=== PATIENT | female | born 1995 ===

== ENCOUNTER 2018-07-25 20:37 | Emergency (ER) | payer BC ==
[2018-07-25 21:00] VITALS: BMI 27.4
[2018-07-25 21:04] VITALS: RESP 18; O2SAT 100
--- NOTE | 2018-07-25 21:57 | ED PDOC ---
HPI: Head Injury Time Seen by Provider: 07/25/18 21:38 Chief Complaint (Nursing): Trauma Chief Complaint (Provider): Head injury History Per: Patient History/Exam Limitations: no limitations Injury Occurred (Timing): Days Ago: (2x) Patient States: Fell Striking Head Loss Of Consciousness: No Additional Complaint(s): 22 year old female with no pertinent past medical history presents to the ED for evaluation of a head injury that occurred 2x nights ago. Patient states that 2x nights ago, she was walking down a flight of stairs when she missed a step, resulting in her falling down 5x steps. Patient states that she struck her head against the floor, sustaining an abrasion to her nasal bridge. Patient denies having a loss of consciousness and states that she felt okay initially after the fall, however, yesterday she began to develop a headache and jaw pain. Patient reports applying betadine to her nasal abrasion. Patient states that today she began to have difficulty concentrating, prompting ED visit. As per patient's boyfriend, she has been acting normal. Patient reports taking Aleve with no relief, last dose was 6x hours prior to arrival. Otherwise: (-) fever (-) neck pain/stiffness (-) visual changes (-) nausea, (-) vomiting (-) extremity pain (- ) chest pain (-) abdominal pain. Tetanus is up to date. LMP: Patient is unsure, about 1x year ago, secondary to control use. PMD: In [place], [place] Past Medical History Reviewed: Historical Data, Nursing Documentation, Vital Signs Vital Signs: Last Vital Signs Temp 98.5 F 07/25/18 21:01 Pulse 64 07/25/18 21:01 Resp 18 07/25/18 21:01 BP 146/82 07/25/18 21:01 Pulse Ox 100 07/25/18 21:01 CINDI Report Viewed: Yes - Medical History PMH: No Chronic Diseases - Surgical History Other surgeries: gastric sleeve - Family History Family History: States: Unknown Family Hx - Home Medications Home Medications: Ambulatory Orders Medication Instructions Recorded Acetaminophen [Acetaminophen 8 650 mg PO Q8 PRN #21 tablet.er 07/25/18 Hour] - Allergies Allergies/Adverse Reactions: Allergies Allergy/AdvReac Type Severity Reaction Status Date / Time No Known Allergies Allergy Verified 07/25/18 21:00 Review of Systems ROS Statement: Except As Marked, All Systems Reviewed And Found Negative ENT: Positive for: Other (jaw pain) Gastrointestinal: Negative for: Nausea, Vomiting Neurological: Positive for: Headache, Other (difficulty concentrating) Physical Exam - Reviewed Nursing Documentation Reviewed: Yes Vital Signs Reviewed: Yes - Physical Exam Comments: GENERAL APPEARANCE: Patient is awake, alert, oriented x 3, in no acute distress. Resting comfortably. SKIN: Warm, dry; (-) cyanosis; (-) rash. HEAD: Small hematoma to forehead just inferior to hairline (+)tenderness (-) palpable deformity (-) other scalp swelling or tenderness EYES: (-) conjunctival injection (-) hyphema (-) periorbital edema, erythema, ecchymosis, or tenderness ENMT: Superficial abrasion to nasal bridge with mild tenderness, (-) edema, (-) palpable deformity. Tenderness to the angle of left mandible with full ROM of mandible (-) edema (-) erythema (-) skin break. (-) sinus tenderness; mucous membranes are moist. Pharynx: clear, uvula midline. NECK: Supple, FROM (-) tenderness, (-) stiffness, (-) meningismus, (-) lymphadenopathy. CHEST AND RESPIRATORY: (-) rales, (-) rhonchi, (-) wheezes; breath sounds equal bilaterally. Respirations even and nonlabored. HEART AND CARDIOVASCULAR: (-) irregularity ABDOMEN AND GI: Soft; (-) tenderness. EXTREMITIES: (-) deformity. NEURO AND PSYCH: Mental status as above. clerk typist: Pupils equal and reactive; EOMI and painless; (-) facial asymmetry; tongue and uvula midline. Strength and sensation symmetric. Gait: steady. Speech: clear. Cerebellar tests intact. - Laboratory Results Urine POC: Negative - ECG O2 Sat by Pulse Oximetry: 100 (RA) Pulse Ox Interpretation: Normal Medical Decision Making Medical Decision Makin:40 Clinical impression: 22 year old female with a closed head injury and nasal contusion status post fall. Initial plan: * CT head w/o contrast * CT maxillofacial w/o contrast * upreg * tylenol 325 mg tab [address] reviewed, [facility] reports follow EXAM: CT Head without Intravenous Contrast. CLINICAL HISTORY: Head injury, from 07-23-2018 persistent headache TECHNIQUE: Axial computed tomography images of the head/brain without intravenous contrast. 780.23 mGy-cm COMPARISON: None provided. FINDINGS: BRAIN No acute intraparenchymal hemorrhage. No mass lesion. No CT evidence for acute territorial infarct. No midline shift or extra-axial collections. VENTRICLES: No hydrocephalus. ORBITS: The orbits are unremarkable. SINUSES AND MASTOIDS: The paranasal sinuses and mastoid air cells are clear. BONES: No fracture. SOFT TISSUES: Unremarkable. IMPRESSION: No acute intracranial abnormality. Electronically signed on Jul 25, 2018 10:45:58 PM EDT by: Anderson Guy M.D., ANNA MARIE Certified By [employer] Fellowship Trained MRI and CT Specialist EXAM: CT Maxillofacial without Intravenous Contrast. CLINICAL HISTORY: Head injury s/p fall nasal /jaw pain TECHNIQUE: Axial computed tomography images of the face without intravenous contrast. Sagittal and coronal reformatted images were generated. 735.66 mGy-cm CONTRAST: Without COMPARISON: None provided. FINDINGS: BONES: No acute fracture or aggressive appearing osseous lesion. The mandible is intact. SOFT TISSUES: The soft tissues are unremarkable. SINUSES: The sinuses are clear. ORBITS: The orbits are normal. No retrobulbar hematoma or mass. IMPRESSION: Unremarkable maxillofacial CT. Electronically signed on Jul 25, 2018 10:46:04 PM EDT by: Anderson Guy M.D., ANNA MARIE Certified By [employer] Trained MRI and CT Specialist On re-evaluation, patient reports improvement of symptoms. On exam, patient remains AAOx3, in no acute distress. Lungs clear to auscultation, cardiac RRR, repeat neuro exam shows no focal findings. Vitals stable. Lab/Diagnostic results d/w the patient in great detail. Diagnosis of closed head injury, concussion d/w the patient. Based on history, exam and diagnostic results, plan will be for outpatient f ollow up with PMD/neuro. Patient instructed to follow-up with pmd / referral provided / the clinic in 1- 2 days without fail. Advised to take medication as prescribed. Return to the emergency room at any time for any new or worsening symptoms. Patient states she fully agrees with and understands discharge instructions. States that she agrees with the plan and disposition. Verbalized and repeated discharge instructions and plan. I have given the patient opportunity to ask any additional questions. Scribe Attestation: Documented by Marlyn Hernandez, acting as a scribe for Marlyn Neal Provider Scribe Attestation: All medical record entries made by the Scribe were at my direction and personally dictated by me. I have reviewed the chart and agree that the record accurately reflects my personal performance of the history, physical exam, medical decision making, and the department course for this patient. I have also personally directed, reviewed, and agree with the discharge instructions and disposition. Disposition - Clinical Impression Clinical Impression: Head injury, Concussion, Headache, Fall down stairs - Patient ED Disposition Is Patient to be Admitted: No Counseled Patient/Family Regarding: Studies Performed, Diagnosis, Need For Followup, Rx Given - Disposition Referrals: Allison Bishop MD [Medical Doctor] - primary, doctor [Other] Disposition: Routine/Home Disposition Time: 23:00 Condition: STABLE Additional Instructions: The emergency medical care you received today was directed at your acute symptoms. If you were prescribed any medication, please fill it and take as directed. It may take several days for your symptoms to resolve. Return to the Emergency Department if your symptoms worsen, do not improve, or if you have any other problems. Please contact your doctor in 2 days for re-evaluation and follow up / or call one of the physicians/clinics you have been referred to that are listed on the Patient Visit Information form that is included in your discharge packet. Bring any paperwork you were given at discharge with you along with any medications you are taking to your follow up visit. Our treatment cannot replace ongoing medical care by a primary care provider (PCP) outside of the emergency department. Prescriptions: Acetaminophen [Acetaminophen 8 Hour] 650 mg PO Q8 PRN #21 tablet.er PRN Reason: Pain, Moderate (4-7) Instructions: Concussion in Adults, Headache, Adult, Closed Head Injury, Postconcussion Syndrome (DC) Forms: [facility] ([place]), [facility] ED School/Work Excuse Print Language: [place] - POA Present On Arrival: Falls Or Trauma
[2018-07-26 00:34] VITALS: BP 128/88; PULSE 78; TEMP 97.8
--- NOTE | 2018-07-26 08:07 | CT ---
Date of service: 07/25/2018 PROCEDURE: CT HEAD WITHOUT CONTRAST. HISTORY: head injury Thursday, persistent headache COMPARISON: None available. TECHNIQUE: Axial computed tomography images were obtained through the head/brain without intravenous contrast. Radiation dose: Total exam DLP = 780.23 mGy-cm. This CT exam was performed using one or more of the following dose reduction techniques: Automated exposure control, adjustment of the mA and/or kV according to patient size, and/or use of iterative reconstruction technique. FINDINGS: HEMORRHAGE: No intracranial hemorrhage. BRAIN: Mccarthy-white matter differentiation is preserved. There is no mass, mass effect or abnormal extra-axial fluid collection. There is no territorial infarction. The midline sagittal structures are normal. VENTRICLES: The ventricles are normal in size, shape and configuration. CALVARIUM: There is no calvarial fracture or extracranial soft tissue swelling. PARANASAL SINUSES: Predominantly clear. MASTOID AIR CELLS: Predominantly clear. OTHER FINDINGS: None. IMPRESSION: No acute intracranial abnormality. A preliminary report was provided by [employer]
--- NOTE | 2018-07-26 08:55 | CT ---
Date of service: 07/25/2018 PROCEDURE: CT MAXILLOFACIAL BONES WITHOUT CONTRAST HISTORY: head injury s/p fall, nasal/jaw pain COMPARISON: None available. TECHNIQUE: Contiguous axial CT images of the maxillofacial bones were obtained. Coronal and sagittal reformats were generated. Radiation dose: Total exam DLP = 735.66 mGy-cm. This CT exam was performed using one or more of the following dose reduction techniques: Automated exposure control, adjustment of the mA and/or kV according to patient size, and/or use of iterative reconstruction technique. FINDINGS: NASAL BONES: There is an acute nondisplaced fracture in the right nasal bone with mild nasal soft tissue swelling. No acute left nasal bone fracture. ORBITS: The globes are symmetric and normal in appearance. No acute injury. PARANASAL SINUSES/ MASTOIDS: Clear. MAXILLA: No acute maxillofacial fracture. MANDIBLE/ TEMPOROMANDIBULAR JOINTS: Unremarkable. SKULL BASE: Unremarkable. TEMPORAL BONES: Middle ears and mastoid grossly unremarkable. OTHER FINDINGS: None. IMPRESSION: Acute nondisplaced fracture in the right nasal bone with mild nasal soft tissue swelling. No acute maxillofacial fracture. A preliminary report was provided by [facility] The final report is tagged to the PA review folder.
== END 2018-07-26 00:34 | disposition home or self-care (01) ==
LOC: H.ER 20:37
DX: S09.90XA Unspecified injury of head, initial encounter (principal); S00.33XA Contusion of nose, initial encounter; R51 Headache; W10.9XXA Fall (on) (from) unspecified stairs and steps, initial encounter